=== PATIENT | female | born 1940 | race Caucasian/White ===

== ENCOUNTER 2017-07-12 08:40 | Inpatient (IN) | payer MEDICARE ==
[2017-07-12] MEDS ORDERED: NS 0.9% 1000 ML* 2,000 ML IV ONE (11:12)
[2017-07-12 11:20] LABS: Hematocrit 27 % (35-47); Hemoglobin 9.1 g/dl (12.0-16.0); Mean Corpuscular HGB Conc 34 g/dl (31-36); Mean Corpuscular Hemoglobin 28 pg (27-31); Mean Corpuscular Volume 82 fL (80-97); Mean Platelet Volume 8 um3 (7.4-10.4); Red Blood Count 3.31 10^6/ul (4.0-5.4); Red Cell Distribution Width 16 % (10.5-15); White Blood Count 10.4 10^3/ul (3.5-10.8)
[2017-07-12 11:36] LABS: ALT 9 U/L (7-52); AST 16 U/L (13-39); Albumin 3.5 g/dL (3.2-5.2); Alkaline Phosphatase 41 U/L (34-104); Anion Gap 7 mmol/L (2-11); BUN/Creatinine Ratio 69.6 (8-20); Blood Urea Nitrogen 39 mg/dL (6-24); C Reactive Protein 3.45 mg/L (< 5.00); CO2 Carbon Dioxide 25 mmol/L (22-32); Calcium 8.8 mg/dL (8.6-10.3); Chloride 104 mmol/L (101-111); EGFR African American 134.6 (>60); EGFR Non-African American 104.7 (>60); Glucose 108 mg/dL (70-100); Lipase 13 U/L (11.0-82.0); Potassium 4.2 mmol/L (3.5-5.0); Sodium 136 mmol/L (133-145); Total Protein 6.5 g/dL (6.4-8.9)
[2017-07-12] MEDS ORDERED: Acetaminophen TAB* 325 MG PO PRN (11:59)
[2017-07-12 12:24] LABS: TSH (Thyroid Stimulating Horm) 0.82 mcIU/mL (0.34-5.60)
[2017-07-12] MEDS: NS 0.9% 1000 ML* 1,000 ML IV SCH ×2 (14:44→21:48)
[2017-07-12] MEDS: Heparin VIAL(*) 5000 UNITS/ML VIAL (FIVE THOUSAND) SUBCUT SCH ×2 (14:50→21:45)
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
--- NOTE | 2017-07-12 17:31 | ED ---
Trevor León Benjamin, scribed for Aidan Kunz MD on 07/12/17 at 1119 . Syncope/Near Syncope - HPI Summary HPI Summary: 76yo female who returned from two days of flights yesterday afternoon from [place] has been feeling fatigued, weak, and having passed out 4-5 times since yesterday. Per , pt has been passing out randomly in the middle of activities. Pt was found sleeping in bathroom floor and ladder on her bed. Her syncopal episodes looked like she just shut down during activities due to lack of energy. Pt has been feeling ill and reports having fever, feeling hot, and having chills. Denies any CP, SOB, diarrhea, abdominal pain. Pt hasnt urinated in 2 days. - History Of Current Complaint Chief Complaint: EDSyncope Time Seen by Provider: 07/12/17 11:04 Hx Obtained From: Patient, Family/Diesel Locomotive Engineer - Onset/Duration: Lasting Days - since yesterday, Still Present Timing: Intermittent Episode Lasting Context: Witnessed - by , Loss Of Consciousness Activity At Onset: Exertion Associated Head Trauma: No Aggravating Factor(s): Nothing Alleviating Factor(s): Nothing Associated Signs And Symptoms: Weakness - Allergies/Home Medications Home Medications: Home Medications Imipramine (NF) 25 mg PO DAILY 07/12/17 [History Confirmed 07/12/17] Latanoprost 0.005% OPTH (NF) [Xalatan 0.005% OPTH (NF)] 1 drop BOTH EYES DAILY 07/12/17 [History Confirmed 07/12/17] Timolol 0.5% OPTH.THOR* [Timoptic 0.5% Opth*] 1 drop BOTH EYES DAILY 07/12/17 [ History Confirmed 07/12/17] traZODone TAB* [Desyrel TAB*] 100 mg PO BEDTIME PRN 07/12/17 [History Confirmed 07/12/17] PMH/Surg Hx/FS Hx/Imm Hx Infectious Disease History: No Infectious Disease History: Denies: Traveled Outside the [place] in Last 30 Days - Social History Alcohol Use: None Substance Use Type: Reports: None Smoking Status (MU): Former Smoker Review of Systems Positive: Fever, Chills, Fatigue Eyes: Negative ENT: Negative Cardiovascular: Negative Negative: Chest Pain Negative: Shortness Of Breath, Cough Positive: Nausea. Negative: Abdominal Pain, Vomiting, Diarrhea Positive: other - anuria for 2 days. Negative: dysuria, hematuria, incontinence Musculoskeletal: Negative Skin: Negative Positive: Weakness Psychological: Normal All Other Systems Reviewed And Are Negative: Yes Physical Exam Triage Information Reviewed: Yes Vital Signs On Initial Exam: Initial Vitals BP 112/66 07/12/17 08:44 Vital Signs Reviewed: Yes Appearance: Positive: No Pain Distress, Well-Nourished, Ill-Appearing - mild to moderate Skin: Positive: Warm, Skin Color Reflects Adequate Perfusion, Dry Head/Face: Positive: Normal Head/Face Inspection Eyes: Positive: EOMI, BRANDY ENT: Positive: Normal ENT inspection, Other - dry oral mucosa Neck: Positive: Supple, Nontender Respiratory/Lung Sounds: Positive: Clear to Auscultation, Breath Sounds Present Cardiovascular: Positive: RRR, Pulses are Symmetrical in both Upper and Lower Extremities. Negative: Leg Edema Left, Leg Edema Right Abdomen Description: Positive: Nontender, No Organomegaly, Soft Bowel Sounds: Positive: Present Musculoskeletal: Positive: Strength/ROM Intact. Negative: Edema Left, Edema Right Neurological: Positive: Sensory/Motor Intact, Alert, Oriented to Person Place, Time. Negative: Focal Deficit @ - no Focal Neurological Deficit - Madie Coma Scale Coma Scale Total: 15 Diagnostics - Vital Signs Vital Signs Temp Pulse Resp BP Pulse Ox 07/12/17 10:30 99 18 109/71 97 07/12/17 10:00 99 18 99/66 97 07/12/17 09:30 96 17 104/64 96 07/12/17 09:00 99 23 100/72 99 07/12/17 08:55 97.5 F 99 20 112/66 100 07/12/17 08:49 96.9 F 94 10 112/66 100 07/12/17 08:44 / - Laboratory Lab Results: Lab Results 07/12/17 07/12/17 07/12/17 Range/Units 11:10 11:10 11:10 WBC (3.5-10.8) 10^3/ul RBC (4.0-5.4) 10^6/ul Hgb (12.0-16.0) g/dl Hct (35-47) % MCV (80-97) fL MCH (27-31) pg MCHC (31-36) g/dl RDW (10.5-15) % Plt Count (150-450) 10^3/ul MPV (7.4-10.4) um3 Neut % (Auto) (38-83) % Lymph % (Auto) (25-47) % [place] % (Auto) (1-9) % Eos % (Auto) (0-6) % Baso % (Auto) (0-2) % Absolute Neuts (auto) (1.5-7.7) 10^3/ul Absolute Lymphs (auto) (1.0-4.8) 10^3/ul Absolute Monos (auto) (0-0.8) 10^3/ul Absolute Eos (auto) (0-0.6) 10^3/ul Absolute Basos (auto) (0-0.2) 10^3/ul Absolute Nucleated RBC 10^3/ul Nucleated RBC % INR (Anticoag Therapy) 0.94 (0.89-1.11) APTT 27.2 (26.0-36.3) seconds D-Dimer, Quantitative 213 (Less Than 230) ng/mL Sodium 136 (133-145) mmol/L Potassium 4.2 (3.5-5.0) mmol/L Chloride 104 (101-111) mmol/L Carbon Dioxide 25 (22-32) mmol/L Anion Gap 7 (2-11) mmol/L BUN 39 H (6-24) mg/dL Creatinine 0.56 (0.51-0.95) mg/dL Est GFR ( Amer) 134.6 (>60) Est GFR (Non-Af Amer) 104.7 (>60) BUN/Creatinine Ratio 69.6 H (8-20) Glucose 108 H (70-100) mg/dL Lactic Acid (0.5-2.0) mmol/L Calcium 8.8 (8.6-10.3) mg/dL Magnesium 2.0 (1.9-2.7) mg/dL Total Bilirubin 0.40 (0.2-1.0) mg/dL AST 16 (13-39) U/L ALT 9 (7-52) U/L Alkaline Phosphatase 41 (34-104) U/L Troponin I 0.00 (<0.04) ng/mL C-Reactive Protein 3.45 (< 5.00) mg/L B-Natriuretic Peptide 20 ( - 100) pg/mL Total Protein 6.5 (6.4-8.9) g/dL Albumin 3.5 (3.2-5.2) g/dL Globulin 3.0 (2-4) g/dL Albumin/Globulin Ratio 1.2 (1-3) Lipase 13 (11.0-82.0) U/L TSH 0.82 (0.34-5.60) mcIU/mL 07/12/17 07/12/17 Range/Units 11:10 11:10 WBC 10.4 (3.5-10.8) 10^3/ul RBC 3.31 L (4.0-5.4) 10^6/ul Hgb 9.1 L (12.0-16.0) g/dl Hct 27 L (35-47) % MCV 82 (80-97) fL MCH 28 (27-31) pg MCHC 34 (31-36) g/dl RDW 16 H (10.5-15) % Plt Count 248 (150-450) 10^3/ul MPV 8 (7.4-10.4) um3 Neut % (Auto) 82.8 (38-83) % Lymph % (Auto) 14.0 L (25-47) % [place] % (Auto) 2.7 (1-9) % Eos % (Auto) 0 (0-6) % Baso % (Auto) 0.5 (0-2) % Absolute Neuts (auto) 8.6 H (1.5-7.7) 10^3/ul Absolute Lymphs (auto) 1.5 (1.0-4.8) 10^3/ul Absolute Monos (auto) 0.3 (0-0.8) 10^3/ul Absolute Eos (auto) 0 (0-0.6) 10^3/ul Absolute Basos (auto) 0.1 (0-0.2) 10^3/ul Absolute Nucleated RBC 0.01 10^3/ul Nucleated RBC % 0 INR (Anticoag Therapy) (0.89-1.11) APTT (26.0-36.3) seconds D-Dimer, Quantitative (Less Than 230) ng/mL Sodium (133-145) mmol/L Potassium (3.5-5.0) mmol/L Chloride (101-111) mmol/L Carbon Dioxide (22-32) mmol/L Anion Gap (2-11) mmol/L BUN (6-24) mg/dL Creatinine (0.51-0.95) mg/dL Est GFR ( Amer) (>60) Est GFR (Non-Af Amer) (>60) BUN/Creatinine Ratio (8-20) Glucose (70-100) mg/dL Lactic Acid 2.4 H* (0.5-2.0) mmol/L Calcium (8.6-10.3) mg/dL Magnesium (1.9-2.7) mg/dL Total Bilirubin (0.2-1.0) mg/dL AST (13-39) U/L ALT (7-52) U/L Alkaline Phosphatase (34-104) U/L Troponin I (<0.04) ng/mL C-Reactive Protein (< 5.00) mg/L B-Natriuretic Peptide ( - 100) pg/mL Total Protein (6.4-8.9) g/dL Albumin (3.2-5.2) g/dL Globulin (2-4) g/dL Albumin/Globulin Ratio (1-3) Lipase (11.0-82.0) U/L TSH (0.34-5.60) mcIU/mL Result Diagrams: 07/12/17 11:10 07/12/17 11:10 Lab Statement: Any lab studies that have been ordered have been reviewed, and results considered in the medical decision making process. - EKG 0853 Cardiac Rate: NL - 99bpm EKG Rhythm: Sinus Rhythm ST Segment: : Normal - borderline T abnormalities Course/Dx Course Of Treatment: Reviewed pts medication and allergy lists. Blood pressure noted. Discussed with Dr. Coy (Hospitalist) at 11:22. ADMIT HOSPITALIST. NO CRITICAL CARE TIME. - Diagnoses Provider Diagnoses: Syncope, Dehydration Discharge - Discharge Plan Condition: Stable Disposition: ADMITTED TO [facility] documentation as recorded by the Trevor chappell Benjamin accurately reflects the service I personally performed and the decisions made by me, Aidan Kunz MD.
[2017-07-13] MEDS: NS 0.9% 1000 ML* 1,000 ML IV SCH (04:18)
[2017-07-13] MEDS: Heparin VIAL(*) 5000 UNITS/ML VIAL (FIVE THOUSAND) SUBCUT SCH (05:28)
[2017-07-13 05:36] LABS: Hematocrit 19 % (35-47); Hemoglobin 6.5 g/dl (12.0-16.0); Mean Corpuscular HGB Conc 34 g/dl (31-36); Mean Corpuscular Hemoglobin 28 pg (27-31); Mean Corpuscular Volume 83 fL (80-97); Mean Platelet Volume 8 um3 (7.4-10.4); Red Blood Count 2.32 10^6/ul (4.0-5.4); Red Cell Distribution Width 16 % (10.5-15); White Blood Count 6.1 10^3/ul (3.5-10.8)
[2017-07-13 05:38] LABS: Add Diff/Slide Review? Slide Review Added; Comments Flag Yes
[2017-07-13 05:46] LABS: Urine Bacteria Absent (Absent); Urine Bilirubin Negative (Negative); Urine Glucose Negative (Negative); Urine Nitrite Negative (Negative)
[2017-07-13 06:48] LABS: Total Iron Binding Capacity 419 mcg/dL (250-450); Transferrin 299 mg/dL (203-362)
[2017-07-13 06:51] LABS: Iron 35 ug/dL (50-212)
[2017-07-13 07:10] LABS: Ferritin 14.8 ng/mL (11-307)
[2017-07-13 07:13] LABS: Folate > 20.00 ng/mL (>3.99)
[2017-07-13 07:14] LABS: Vitamin B12 807 pg/mL (180-914)
[2017-07-13] MEDS ORDERED: Iohexol 350* (CONTRAST) 500 ML MDV IV ONE (08:14)
[2017-07-13 08:37] LABS: Hematocrit 18 % (35-47)
[2017-07-13 08:39] LABS: Comments Flag Yes
[2017-07-13 08:42] LABS: Hemoglobin 6.2 g/dl (12.0-16.0)
[2017-07-13 08:46] LABS: BUN/Creatinine Ratio 29.4 (8-20); Blood Urea Nitrogen 15 mg/dL (6-24); CO2 Carbon Dioxide 26 mmol/L (22-32); Calcium 7.8 mg/dL (8.6-10.3); Chloride 109 mmol/L (101-111); EGFR Non-African American 116.6 (>60); Glucose 93 mg/dL (70-100); Sodium 135 mmol/L (133-145)
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
[2017-07-13] MEDS ORDERED: Pantoprazole IV* 40 MG IV ONE (10:23)
[2017-07-13] MEDS: Pantoprazole IV* 80 MG in NS 0.9% 250 ML* 250 ML IVPB SCH ×2 (11:50→21:27)
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
--- NOTE | 2017-07-13 13:36 | ECHO ---
Patient: JOSEFINA TUTTLE [facility] Rec#: [id number] : 1940 Date: 07/13/2017 Age: 76y Height: 149.86 cm / 59.0 in Weight: 53.52 kg / 118.0 lbs Sex: F BSA: 1.47 Room#: 450 Admit Date#: 07/12/2017 Type: Inpatient Referring: Meagan Salazar MD Reading: Yao Peña MD Assistant Professor Of Radiology: Shireen Norman RD,RDMS Transthoracic Echocardiogram Indication: Syncope BP: 103/47 HR: 86 Rhythm: NSR Findings History: Anemia, murmur Technical Comments: The study quality is good. Completed 1300 Left Ventricle: The left ventricular chamber size is decreased. Mild concentric left ventricular hypertrophy is observed. The left ventricle appears hyperdynamic. The estimated ejection fraction is 60-65%. Abnormal left ventricular diastolic filling is observed, consistent with impaired relaxation. Left Atrium: The left atrium is mildly dilated. Right Ventricle: The right ventricular chamber size and systolic function are within normal limits. Right Atrium: The right atrial cavity size is normal. Aortic Valve: The aortic valve leaflets are moderately thickened. Systolic excursion of the aortic valve cusps is reduced. There is a trace of aortic regurgitation. There is moderate aortic stenosis. The mean gradient of the aortic valve is 20 mmHg. The aortic valve area, by peak velocities, is calculated at 1.2 cm2. Highest aortic valve velocity was acquired with Pedoff in apical position. Mitral Valve: There is mitral annular calcification. The mitral valve leaflets are moderately thickened. There is moderate to severe mitral regurgitation. At least moderate MR There is borderline mitral stenosis. Tricuspid Valve: The tricuspid valve leaflets are normal. There is mild to moderate tricuspid regurgitation. There is evidence of borderline pulmonary hypertension. Pulmonic Valve: The pulmonic valve appears normal. There is a trace pulmonic regurgitation. Pericardium: There is no significant pericardial effusion. Aorta: The aortic root appears normal. There is no dilatation of the aortic arch. Pulmonary Artery: The main pulmonary artery is not well visualized. Venous: The inferior vena cava appears normal in size. There is a greater than 50% respiratory change in the inferior vena cava dimension. Summary: There was not any prior study for comparison. Conclusions The left ventricular chamber size is decreased. Mild concentric left ventricular hypertrophy is observed. The left ventricle appears hyperdynamic. The estimated ejection fraction is 60-65%. Abnormal left ventricular diastolic filling is observed, consistent with impaired relaxation. The left atrium is mildly dilated. There is a trace of aortic regurgitation. There is moderate aortic stenosis. There is moderate to severe mitral regurgitation. At least moderate MR There is mild to moderate tricuspid regurgitation. There is evidence of borderline pulmonary hypertension. There is a trace pulmonic regurgitation. Measurements Name Value Normal Range RVIDd (AP) 2D 2.2 cm (0.9 - 2.6) RVDdMajor (2D) 2.8 cm (2.2 - 4.4) RAd ISD 4CH 4.8 cm (3.4 - 4.9) RA (A4C)W 3.9 cm (2.9 - 4.6) IVSd (2D) 1.3 cm (0.6 - 1) LVPWd (2D) 1.1 cm (0.6 - 1) LVIDd (2D) 3.5 cm (3.6 - 5.4) LVIDs (2D) 1.9 cm - LV FS (2D) 47 % (25 - 45) Aortic Annulus 1.8 cm (1.4 - 2.6) Ao root diameter (2D) 2.4 cm (2.1 - 3.5) Ascending Ao 3.1 cm (2.1 - 3.4) Aortic arch 2.6 cm (1.8 - 3.4) LA dimension (AP) 2D 3.8 cm (2.3 - 3.8) LAd ISD 4CH 5.1 cm (2.9 - 5.3) LA ISD 4CH W 4.1 cm (2.5 - 4.5) Name Value Normal Range LA ESV SP 4CH (A/L) 52.91 ml - LA ESV SP 2CH (A/L) 53.01 ml - LA ESV BP (A/L) 53.81 ml - LA ESV BP (A/L) index 37 ml/m2 - LA ESV SP 4CH (MOD) 48.63 ml - LA ESV SP 2CH (MOD) 48.01 ml - Name Value Normal Range MV E-wave Vmax 1 m/sec - MV deceleration time 151 msec - MV A-wave Vmax 1.1 m/sec - MV E:A ratio 0.9 ratio - P. vein S-wave Vmax 0.8 m/sec - P. vein D-wave Vmax 0.6 m/sec - P. vein S:D Vmax ratio 1.4 ratio - P. vein A-wave duration 76 msec - LV septal e' Vmax 0.06 m/sec - LV lateral e' Vmax 0.07 m/sec - LV E:e' septal ratio 17 ratio - LV E:e' lateral ratio 14 ratio - Name Value Normal Range AV Vmax 3.1 m/sec - AV VTI 64.6 cm - AV peak gradient 38 mmHg - AV mean gradient 20 mmHg - LVOT diameter 2 cm - LVOT Vmax 1.2 m/sec - LVOT VTI 26.8 cm - LVOT peak gradient 6 mmHg - LVOT mean gradient 3.3 mmHg - DOI (VTI) 0.4 ratio - ARIE (continuity Vmax) 1.2 cm2 - ARIE (continuity VTI) 1.3 cm2 - BRENDA Vmax 0.6 m/sec - Name Value Normal Range MV Vmax 1.3 m/sec - MV VTI 29 cm - MV peak gradient 7 mmHg - MV mean gradient 3.7 mmHg - MV PHT 46 msec - MR Vmax 6.1 m/sec - MR VTI 191 cm - MR flow (PISA) 105 ml/sec - MR ERO 1.7 cm2 - MR PISA radius 0.7 cm - MR alias Vmax 35 cm/sec - MVA (PHT) 4.8 cm2 - MVA (continuity VTI) 3 cm2 - Name Value Normal Range TR Vmax 2.7 m/sec - TR peak gradient 29 mmHg - RAP 3 mmHg - RVSP 32 mmHg - IVC diameter 1.2 cm - Name Value Normal Range PV Vmax 0.8 m/sec - PV peak gradient 2.6 mmHg -
[2017-07-13] MEDS: Ondansetron INJ* 2 MG/ML VIAL IV PRN (19:17)
[2017-07-13 20:30] LABS: Hematocrit 24 % (35-47); Hemoglobin 8.2 g/dl (12.0-16.0)
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
[2017-07-14 05:30] LABS: Hematocrit 24 % (35-47); Hemoglobin 8.4 g/dl (12.0-16.0); Mean Corpuscular HGB Conc 34 g/dl (31-36); Mean Corpuscular Hemoglobin 28 pg (27-31); Mean Corpuscular Volume 81 fL (80-97); Mean Platelet Volume 8 um3 (7.4-10.4); Red Blood Count 3.01 10^6/ul (4.0-5.4); Red Cell Distribution Width 16 % (10.5-15); White Blood Count 6.8 10^3/ul (3.5-10.8)
[2017-07-14 05:44] LABS: BUN/Creatinine Ratio 18.3 (8-20); Calcium 8.3 mg/dL (8.6-10.3); EGFR African American 124.3 (>60); EGFR Non-African American 96.7 (>60); Potassium 3.6 mmol/L (3.5-5.0)
[2017-07-14] MEDS: Ondansetron INJ* 2 MG/ML VIAL IV PRN (07:25)
[2017-07-14] MEDS: Pantoprazole IV* 80 MG in NS 0.9% 250 ML* 250 ML IVPB SCH ×2 (08:02→20:32)
[2017-07-14] MEDS ORDERED: Midazolam* 1 MG/ML 10 ML VIAL (10 MG) ONE (09:51)
[2017-07-14] MEDS ORDERED: Artificial Tears* 15 ML BTL BOTH EYES PRN (10:19)
[2017-07-14] MEDS: Latanoprost 0.005%* 2.5 ml BTL BOTH EYES SCH (11:59)
[2017-07-14] MEDS: Timolol 0.5% OPTH.SOL* BTL BOTH EYES SCH (11:59)
--- NOTE | 2017-07-14 14:11 | PN ---
Subjective Date of Service: 07/14/17 Interval History: EGD done this morning showed a gastric ulcer. She feels weak still. No melena, hematochezia, nausea, vomiting, syncope. Family History: Unchanged from Admission Social History: Unchanged from Admission Past Medical History: Unchanged from Admission Objective Active Medications: Acetaminophen (Tylenol Tab*) 650 mg PO Q6H PRN PRN Reason: PAIN Pantoprazole Sodium 80 mg/ (Sodium Chloride) 250 mls @ 25 mls/hr IVPB Q10H [facility] Last Admin: 07/14/17 08:02 Dose: 25 mls/hr Latanoprost (Xalatan 0.005%*) 1 drop BOTH EYES DAILY [facility] Last Admin: 07/14/17 11:59 Dose: 1 drop Ondansetron HCl (Zofran Inj*) 4 mg IV Q4H PRN PRN Reason: NAUSEA Last Admin: 07/14/17 07:25 Dose: 4 mg Polyvinyl Alcohol (Polyvinyl Alcohol 1.4% Opth*) 1 drop BOTH EYES Q2H PRN PRN Reason: DRY EYE Timolol Maleate (Timoptic 0.5% Opth*) 1 drop BOTH EYES DAILY [facility] Last Admin: 07/14/17 11:59 Dose: 1 dose Vital Signs 07/13/17 07/13/17 07/13/17 15:26 18:57 19:39 Temperature 98.9 F 98.5 F 98.8 F Pulse Rate 86 88 93 Respiratory 16 15 18 Rate Blood Pressure 100/58 101/59 114/65 (mmHg) O2 Sat by Pulse 99 97 99 Oximetry 07/13/17 07/13/17 07/14/17 20:00 23:39 03:28 Temperature 98.7 F 98.7 F Pulse Rate 90 81 Respiratory 19 16 16 Rate Blood Pressure 96/56 99/53 (mmHg) O2 Sat by Pulse 96 96 Oximetry 07/14/17 07/14/17 07/14/17 07:31 08:00 11:45 Temperature 98.0 F 98.5 F Pulse Rate 84 88 Respiratory 20 18 16 Rate Blood Pressure 118/67 110/57 (mmHg) O2 Sat by Pulse 100 96 Oximetry 07/14/17 07/14/17 11:52 13:53 Temperature 98.6 F 98.3 F Pulse Rate 84 83 Respiratory 20 24 Rate Blood Pressure 114/63 126/67 (mmHg) O2 Sat by Pulse 94 99 Oximetry Oxygen Devices in Use Now: None Appearance: alert, well appearing no distress Eyes: No Scleral Icterus Ears/Nose/Mouth/Throat: NL Teeth, Lips, Gums, Clear Oropharnyx Neck: NL Appearance and Movements; NL JVP, Trachea Midline Respiratory: Symmetrical Chest Expansion and Respiratory Effort, Clear to Auscultation Cardiovascular: NL Sounds; No Murmurs; No JVD, RRR Abdominal: NL Sounds; No Tenderness; No Distention Lymphatic: No Cervical Adenopathy Extremities: No Edema Skin: No Rash or Ulcers Neurological: Alert and Oriented x 3 Result Diagrams: 07/14/17 05:16 07/14/17 05:16 Additional Lab and Data: Lab Results 07/12/17 07/12/17 07/12/17 Range/Units 11:10 11:10 11:10 WBC (3.5-10.8) 10^3/ul RBC (4.0-5.4) 10^6/ul Hgb (12.0-16.0) g/dl Hct (35-47) % MCV (80-97) fL MCH (27-31) pg MCHC (31-36) g/dl RDW (10.5-15) % Plt Count (150-450) 10^3/ul MPV (7.4-10.4) um3 Neut % (Auto) (38-83) % Lymph % (Auto) (25-47) % [place] % (Auto) (1-9) % Eos % (Auto) (0-6) % Baso % (Auto) (0-2) % Absolute Neuts (auto) (1.5-7.7) 10^3/ul Absolute Lymphs (auto) (1.0-4.8) 10^3/ul Absolute Monos (auto) (0-0.8) 10^3/ul Absolute Eos (auto) (0-0.6) 10^3/ul Absolute Basos (auto) (0-0.2) 10^3/ul Absolute Nucleated RBC 10^3/ul Nucleated RBC % INR (Anticoag Therapy) 0.94 (0.89-1.11) APTT 27.2 (26.0-36.3) seconds D-Dimer, Quantitative 213 (Less Than 230) ng/mL Sodium 136 (133-145) mmol/L Potassium 4.2 (3.5-5.0) mmol/L Chloride 104 (101-111) mmol/L Carbon Dioxide 25 (22-32) mmol/L Anion Gap 7 (2-11) mmol/L BUN 39 H (6-24) mg/dL Creatinine 0.56 (0.51-0.95) mg/dL Est GFR ( Amer) 134.6 (>60) Est GFR (Non-Af Amer) 104.7 (>60) BUN/Creatinine Ratio 69.6 H (8-20) Glucose 108 H (70-100) mg/dL Lactic Acid (0.5-2.0) mmol/L Calcium 8.8 (8.6-10.3) mg/dL Magnesium 2.0 (1.9-2.7) mg/dL Total Bilirubin 0.40 (0.2-1.0) mg/dL AST 16 (13-39) U/L ALT 9 (7-52) U/L Alkaline Phosphatase 41 (34-104) U/L Troponin I 0.00 (<0.04) ng/mL C-Reactive Protein 3.45 (< 5.00) mg/L B-Natriuretic Peptide 20 ( - 100) pg/mL Total Protein 6.5 (6.4-8.9) g/dL Albumin 3.5 (3.2-5.2) g/dL Globulin 3.0 (2-4) g/dL Albumin/Globulin Ratio 1.2 (1-3) Lipase 13 (11.0-82.0) U/L TSH 0.82 (0.34-5.60) mcIU/mL 07/12/17 07/12/17 Range/Units 11:10 11:10 WBC 10.4 (3.5-10.8) 10^3/ul RBC 3.31 L (4.0-5.4) 10^6/ul Hgb 9.1 L (12.0-16.0) g/dl Hct 27 L (35-47) % MCV 82 (80-97) fL MCH 28 (27-31) pg MCHC 34 (31-36) g/dl RDW 16 H (10.5-15) % Plt Count 248 (150-450) 10^3/ul MPV 8 (7.4-10.4) um3 Neut % (Auto) 82.8 (38-83) % Lymph % (Auto) 14.0 L (25-47) % [place] % (Auto) 2.7 (1-9) % Eos % (Auto) 0 (0-6) % Baso % (Auto) 0.5 (0-2) % Absolute Neuts (auto) 8.6 H (1.5-7.7) 10^3/ul Absolute Lymphs (auto) 1.5 (1.0-4.8) 10^3/ul Absolute Monos (auto) 0.3 (0-0.8) 10^3/ul Absolute Eos (auto) 0 (0-0.6) 10^3/ul Absolute Basos (auto) 0.1 (0-0.2) 10^3/ul Absolute Nucleated RBC 0.01 10^3/ul Nucleated RBC % 0 INR (Anticoag Therapy) (0.89-1.11) APTT (26.0-36.3) seconds D-Dimer, Quantitative (Less Than 230) ng/mL Sodium (133-145) mmol/L Potassium (3.5-5.0) mmol/L Chloride (101-111) mmol/L Carbon Dioxide (22-32) mmol/L Anion Gap (2-11) mmol/L BUN (6-24) mg/dL Creatinine (0.51-0.95) mg/dL Est GFR ( Amer) (>60) Est GFR (Non-Af Amer) (>60) BUN/Creatinine Ratio (8-20) Glucose (70-100) mg/dL Lactic Acid 2.4 H* (0.5-2.0) mmol/L Calcium (8.6-10.3) mg/dL Magnesium (1.9-2.7) mg/dL Total Bilirubin (0.2-1.0) mg/dL AST (13-39) U/L ALT (7-52) U/L Alkaline Phosphatase (34-104) U/L Troponin I (<0.04) ng/mL C-Reactive Protein (< 5.00) mg/L B-Natriuretic Peptide ( - 100) pg/mL Total Protein (6.4-8.9) g/dL Albumin (3.2-5.2) g/dL Globulin (2-4) g/dL Albumin/Globulin Ratio (1-3) Lipase (11.0-82.0) U/L TSH (0.34-5.60) mcIU/mL Assess/Plan/Problems-Billing Assessment: Mrs. Rodriguez is a 76yo F with PMH of depression, iron deficiency anemia of unclear etiology 5 years ago, glaucoma, who presented to ED after multiple syncopal episodes, found to be anemic. 1. Acute blood loss anemia likely explained by the gastric ulcer and hiatal hernia seen on EGD this morning. Hemodynamically stable and hgb are stable. She should have PO iron supplementation. Continue Protonix and await H. pylori serology. 2. Syncope likely orthostasis related to #1. Recheck orthostatic vitals prior to discharge. 3. Glaucoma resume drops today Status and Disposition: Change to inpatient for management of GI bleed requiring >48h for stabilization.
--- NOTE | 2017-07-14 22:53 | PRO ---
DATE: 07/14/17 - ROOM #450 REFERRING PHYSICIAN: Sofia Coy DO * PROCEDURE: Upper gastrointestinal endoscopy and biopsy gastric ulcer, posterior wall distal antrum, and CLOtest. INDICATION: This 76-year-old woman had episodes of syncope. When she reported to the emergency room, she was found to be anemic. She was heme positive. Since admission, she has not had any overt bleeding. She has not had any overt bleeding at home. She denies taking NSAIDs with at least 3 historical recitations. Referencing an intolerance to opiate, she was sedated with Versed only. ENDOSCOPIST: Yordy Gutiérrez MD MEDICATIONS: Midazolam 5 with excellent comfort. EGD: Larynx: Symmetric, limited views. Esophagus - easily entered and the mucosa is normal in the upper, mid, and lower esophagus. The EG junction is at 32 and there is a large hiatal hernia. Stomach - large hiatal hernia with no gastritis or erosions seen. There is no blood in the cardia or fundus. The gastric body appears normal with normal rugal folds. In the antrum, there is significant erythema and some spasm and when mucus is dispersed and suctioned, an ulcer is seen about 4 cm back from the pylorus posterior wall from about 3 to 5 o'clock. It has a few small black stigmata at its base, but no clot and no protruding vessel. Biopsies were taken from the margin and a CLOtest taken from the gastric body. Duodenum - the pylorus, bulb, and second through fourth portions appear normal. IMPRESSION: 1. Large hiatal hernia. 2. Gastritis - CLOtest pending. 3. Gastric ulcer - biopsies pending. 4. Anemia and heme-positive stool - the ulcer by possibly in combination with new large hiatal hernia are fully sufficient explanations for this, though followup will be of great interest while taking a full dose proton pump inhibitor and checking Hemoccults. She was advised about low-dose iron replacement long-term. [id number]/[facility] #: [id number] [facility]
[2017-07-15 07:36] VITALS: BP 116/68
[2017-07-15 07:36] LABS: Hematocrit 27 % (35-47); Mean Corpuscular HGB Conc 34 g/dl (31-36); Mean Corpuscular Hemoglobin 28 pg (27-31); Mean Corpuscular Volume 82 fL (80-97); Mean Platelet Volume 8 um3 (7.4-10.4); Red Blood Count 3.24 10^6/ul (4.0-5.4); Red Cell Distribution Width 16 % (10.5-15); White Blood Count 5.9 10^3/ul (3.5-10.8)
[2017-07-15] MEDS: Pantoprazole IV* 80 MG in NS 0.9% 250 ML* 250 ML IVPB SCH ×2 (08:05→14:27)
[2017-07-15] MEDS: Latanoprost 0.005%* 2.5 ml BTL BOTH EYES SCH (08:05)
[2017-07-15] MEDS: Timolol 0.5% OPTH.SOL* BTL BOTH EYES SCH (08:05)
[2017-07-15] MEDS ORDERED: Ferrous Sulfate TAB* 325 MG PO SCH (09:00)
[2017-07-15 12:24] LABS: Urine Bacteria Absent (Absent)
[2017-07-15 12:25] LABS: Urine Bilirubin Negative (Negative); Urine Glucose Negative (Negative); Urine Nitrite Negative (Negative)
--- NOTE | 2017-07-16 05:30 | DS ---
DISCHARGE SUMMARY: DATE OF ADMISSION: 07/12/17 DATE OF DISCHARGE: 07/15/17 PRINCIPAL DIAGNOSIS: Gastric antral ulcer. SECONDARY DIAGNOSES: 1. Syncope. 2. Iron deficiency anemia. 3. Glaucoma. 4. Urinary tract infection. 5. Depression. PHYSICAL EXAMINATION: On 07/15/17: General: Alert, well appearing, no distress. HEENT: Conjunctival pallor. Pupils equal, round, and reactive to light. Neck: No lymphadenopathy. No JVP. Chest: Regular rate and rhythm. PMI nondisplaced. Lungs: Clear bilaterally. Abdomen: Soft, nontender, nondistended. Negative Norris's sign. Extremities: No ecchymosis. No edema. Pulses 2+ throughout. HOSPITAL COURSE BY PROBLEM: 1. Gastric ulcer. After her hemoglobin dropped during admission, GI was consulted for consideration of endoscopy. EGD was performed on 07/14/17 and revealed a gastral ulcer in the antrum that was nonbleeding. She was continued on Protonix and will be discharged on Protonix. H. pylori testing was negative. She was encouraged not to take NSAIDs and she was instructed to follow up with Dr. Gutiérrez within 1 month for repeat EGD. 2. Iron deficiency anemia. She did require 2 units of packed red blood cells on this hospitalization. She had good response. She refused p.o. iron supplementation given a history of GI upset with p.o. iron. Iron deficiency anemia can be attributed to the gastric ulcer. She was instructed to have a screening colonoscopy as well as an outpatient. 3. Syncope, likely orthostasis in the setting of profound anemia. She was volume resuscitated upon admission. There were no EKG or telemetry abnormalities to suggest a cardiac etiology of her syncope. She was able to ambulate without difficulty prior to discharge. 4. Depression. She was continued on imipramine. 5. Uncomplicated urinary tract infection. She began to complain of urinary frequency, urgency, and dysuria. A UA was positive and she was started on Macrobid upon discharge. 6. Disposition: The patient was discharged to home on 07/15/17 with 7 days of Macrobid and GI followup as well as Protonix 40 mg daily for 4 weeks. [id number]/[facility] #: [id number] [facility]ITAL[facility]
== END 2017-07-15 16:20 | disposition home or self-care (01) | DRG 812 ==
LOC: ED 08:40 → MEDTELE 11:56 → OBSVTOIN 07-13 10:55
PROVIDERS: ADMIT Hospitalist; ATTEND Internal Medicine
PROC: 30233N1 Transfusion of Nonautologous Red Blood Cells into Peripheral Vein, Percutaneous Approach (ICD-10-PCS; 2017-07-13)
PROC: 0DB68ZX Excision of Stomach, Via Natural or Artificial Opening Endoscopic, Diagnostic (ICD-10-PCS; principal; 2017-07-14)
DX: D62 Acute posthemorrhagic anemia (principal); N39.0 Urinary tract infection, site not specified; B95.7 Other staphylococcus as the cause of diseases classified elsewhere; E86.0 Dehydration; K25.9 Gastric ulcer, unspecified as acute or chronic, without hemorrhage or perforation; D50.9 Iron deficiency anemia, unspecified; H40.9 Unspecified glaucoma; F32.9 Major depressive disorder, single episode, unspecified; I95.1 Orthostatic hypotension; Z66 Do not resuscitate; I35.8 Other nonrheumatic aortic valve disorders; K44.9 Diaphragmatic hernia without obstruction or gangrene; K29.70 Gastritis, unspecified, without bleeding; Z82.49 Family history of ischemic heart disease and other diseases of the circulatory system; Z82.3 Family history of stroke; Z80.0 Family history of malignant neoplasm of digestive organs; Z79.899 Other long term (current) drug therapy
CPT/HCPCS: 36415; 71275; 80048; 80053; 81003; 81015; 82272; 82607; 82728; 82746; 83540; 83550; 83605; 83690; 83735; 83880; 84443; 84484; 85014; 85018; 85025; 85379; 85610; 85730; 86140; 86850; 86900; 86901; 86922; 87077; 87086; 87186; 88305; 88342; 93005; 93306; 99156; 99157; A9270-GY; G0378; J1644; J2250; J2405; P9040; Q9967